=== PATIENT | female | born 1975 | race Caucasian/White ===

== ENCOUNTER 2016-05-27 06:20 | Emergency (ER) ==
[2016-05-27 06:30] VITALS: BP 110/84
[2016-05-27 07:01] LABS: UR AMPHETAMINES QUAL NONE DETECTED (NONE DETECT); UR BARBITUATES QUAL NONE DETECTED (NONE DETECT); UR BENZODIAZEPIN QUAL PRESUMPTIVE POSITIVE (NONE DETECT); UR CANNABINOIDS QUAL NONE DETECTED (NONE DETECT); UR COCAINE QUAL NONE DETECTED (NONE DETECT); UR MDMA QUAL NONE DETECTED (NONE DETECT); UR METHADONE QUAL NONE DETECTED (NONE DETECT); UR METHAMPHETAMINE QUAL NONE DETECTED (NONE DETECT); UR OPIATES QUAL NONE DETECTED (NONE DETECT); UR OXYCODONE QUAL PRESUMPTIVE POSITIVE (NONE DETECT); UR PCP QUAL NONE DETECTED (NONE DETECT); UR TCA QUAL NONE DETECTED (NONE DETECT)
[2016-05-27 07:07] LABS: MANUAL DIFF NEEDED? NO
[2016-05-27 07:20] LABS: URINE CULTURE PL NEEDED? YES; URINE EPITHELIAL CELLS <10 /HPF (<10); URINE SOURCE CLEAN CATCH
[2016-05-27 07:21] LABS: BILIRUBIN URINE NEGATIVE (NEGATIVE); BLOOD URINE NEGATIVE (NEGATIVE); CLARITY SLIGHTLY CLOUDY (CLEAR); COLOR YELLOW; GLUCOSE URINE NEGATIVE (NEGATIVE); LEUKOCYTES URINE NEGATIVE (NEGATIVE); NITRITE URINE NEGATIVE (NEGATIVE); PH URINE 6.5; PROTEIN URINE TRACE mg/dL (NEGATIVE); UROBILINOGEN URINE NORMAL
[2016-05-27 07:24] LABS: BASO% 0.5 % (0.0-0.8); EOS# 0.01 X1000 (0.0-0.7); EOS% 0.2 % (0.0-10.0); HEMATOCRIT 40.5 % (37.0-47.0); LYMPH# 1.35 X1000 (1.2-3.4); LYMPH% 22.4 % (20.5-51.1); MCH 31.2 PG (27-31); MCHC 32.1 g/dL (33-37); MCV 97.1 FL (81-99); MONO# 0.67 X1000 (0.11-0.59); MONO% 11.1 % (1.7-9.3); MPV 10.2 FL (7.4-10.4); NEUT% 65.8 % (42.2-75.2); PLT 267 X1000 (130-400); RBC 4.17 XMIL (4.2-5.4)
[2016-05-27 07:50] LABS: AGAP 9; ALBUMIN 4.3 g/dL (3.5-5.0); ALKALINE PHOSPHATASE 56 U/L (32-104); BUN 13 mg/dL (8-22); CALCIUM 9.4 mg/dL (8.8-10.2); CHLORIDE 104 mmol/L (98-107); COSMO 280; GOT 13 U/L (10-30); GPT 9 U/L (10-36); POTASSIUM 3.5 mmol/L (3.5-5.1); SODIUM 140 mmol/L (136-145); TCO2 28 mmol/L (25-35); TOTAL PROTEIN 7.9 g/dL (6.3-8.3)
[2016-05-27 08:17] LABS: FREE T4 0.64 ng/dL (0.93-1.70)
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
== END 2016-05-27 08:48 | disposition left against medical advice (07) ==
LOC: P.ED 06:20
DX: F31.9 Bipolar disorder, unspecified (principal); M32.9 Systemic lupus erythematosus, unspecified; R45.4 Irritability and anger; R41.0 Disorientation, unspecified; Z79.899 Other long term (current) drug therapy
CPT/HCPCS: 80053; 81001; 82607; 84439; 84443; 85025; 87088; 99284; G0480